=== PATIENT | male | born 1995 | race Two or more races ===

== ENCOUNTER 2024-08-28 14:31 | Emergency (ER) | payer OTHER ==
[~2024-08-28] VITALS: Ht 185.4 cm; Wt 97.5 kg
[2024-08-28] MEDS ORDERED: DEXAMETHASONE SODIUM PHOSPHATE 4 MG/ML VIAL IM ONE (17:45)
[2024-08-28] MEDS ORDERED: DEXAMETHASONE SODIUM PHOSPHATE 4 MG/ML VIAL ONE (17:50)
[2024-08-28] MEDS ORDERED: ATARAX10 MG PO (18:00)
[2024-08-28] MEDS ORDERED: ZYRTEC10 MG PO (18:00)
== END 2024-08-28 18:04 | disposition home or self-care (01) ==
LOC: ER 14:33
DX: L28.2 Other prurigo (principal); R21 Rash and other nonspecific skin eruption